=== PATIENT | male | born 1985 ===

== ENCOUNTER 2024-08-18 20:12 | Emergency (ER) | payer OTHER ==
[~2024-08-18] VITALS: Ht 167.6 cm; Wt 93.0 kg
[2024-08-19] MEDS ORDERED: Diphth,Pertuss(Acell),Tet Vac 0.5 ML VIAL IM ONE (00:25)
== END 2024-08-19 00:50 | disposition home or self-care (01) ==
LOC: ER 20:12
DX: S01.81XA Laceration without foreign body of other part of head, initial encounter (principal); V68.4XXA Person boarding or alighting a heavy transport vehicle injured in noncollision transport accident, initial encounter
CPT/HCPCS: 12002; 12031; 70450; 73130; 90471; 90715; 99284-25